=== PATIENT | female | born 1960 | race African-American/Black ===

== ENCOUNTER 2016-09-02 13:50 | Emergency (ER) | payer MEDICAID ==
[~2016-09-02] VITALS: Ht 172.7 cm; Wt 97.0 kg
[2016-09-02] MEDS ORDERED: DIPHENHYDRAMINE 25MG CAPSULE PO ONE (16:15)
[2016-09-02 16:37] LABS: BASOPHILS % 0.9 % (0.0-2.0); EOSINOPHILS % 1.6 % (0.0-5.0); HEMATOCRIT. 37.1 % (36.0-48.0); HEMOGLOBIN. 12.6 g/dL (12.0-16.0); MEAN CORPUSCULAR HEMOGLOBIN 30.9 pg (28.0-32.0); MEAN CORPUSCULAR VOLUME 91.1 fL (81.0-99.0); MONOCYTES % 10.5 % (2.0-8.0); PLATELET 235 x1000/uL (130-400); RED BLOOD CELL COUNT 4.07 mill/uL (4.2-5.4); RED CELL DISTRIBUTION WIDTH 14.1 % (11.6-14.6)
[2016-09-02 16:49] LABS: CARBON DIOXIDE 27 mEq/L (21-32); CHLORIDE 106 mEq/L (98-107)
[2016-09-02 17:59] VITALS: BP 198/113
== END 2016-09-02 18:36 | disposition home or self-care (01) ==
LOC: ER 16:24
DX: H10.022 Other mucopurulent conjunctivitis, left eye (principal); I10 Essential (primary) hypertension
CPT/HCPCS: 36415; 80053; 85025; 99284; J7030; Q0163

== ENCOUNTER 2017-06-12 11:50 | Emergency (ER) | payer MEDICAID ==
[~2017-06-12] VITALS: Ht 170.2 cm; Wt 109.0 kg
[2017-06-12] MEDS ORDERED: IBUPROFEN 600MG TABLET PO STA (13:05)
[2017-06-12] MEDS ORDERED: KETOROLAC 60MG/2ML VIAL IM STA (13:06)
[2017-06-12 13:17] VITALS: BP 162/93
== END 2017-06-12 13:40 | disposition home or self-care (01) ==
LOC: ER 11:50
DX: L03.211 Cellulitis of face (principal); K12.0 Recurrent oral aphthae; I10 Essential (primary) hypertension
CPT/HCPCS: 96372; 99283; J1885

== ENCOUNTER 2018-06-23 14:23 | Emergency (ER) | payer MEDICAID ==
[~2018-06-23] VITALS: Ht 172.7 cm; Wt 113.0 kg
[2018-06-23] MEDS ORDERED: IBUPROFEN 600MG TABLET PO STA (16:06)
[2018-06-23] MEDS ORDERED: KETOROLAC 30MG/ML VIAL IV STA (16:20)
[2018-06-23] MEDS ORDERED: SODIUM CHLORIDE 0.9% 1,000 ML IV ONE (16:20)
[2018-06-23 16:27] LABS: BASOPHILS % 0.6 % (0.0-2.0); EOSINOPHILS % 2.4 % (0.0-5.0); HEMOGLOBIN. 12.5 g/dL (12.0-16.0); LYMPHOCYTES % 48.2 % (20.0-50.0); MEAN CORPUSCULAR HEMOGLOBIN 30.2 pg (28.0-32.0); MEAN CORPUSCULAR VOLUME 91.6 fL (81.0-99.0); MEAN PLATELET VOLUME 8.6 fl (7.4-10.4); MONOCYTES % 10.4 % (2.0-8.0); NEUTROPHILS % 38.4 % (40.0-76.0); PLATELET 209 x1000/uL (130-400); RED BLOOD CELL COUNT 4.14 mill/uL (4.2-5.4); RED CELL DISTRIBUTION WIDTH 14.9 % (11.6-14.6)
[2018-06-23 16:32] LABS: CHLORIDE 106 mEq/L (98-107); PROTHROMBIN TIME 10.4 sec (9.6-11.0)
[2018-06-23 16:34] LABS: CLARITY URINE CLEAR (CLEAR); COLOR URINE YELLOW (YELLOW); KETONES URINE NEGATIVE (NEGATIVE); LEUKOCYTE ESTERASE URINE NEGATIVE (NEGATIVE); NITRITE URINE NEGATIVE (NEGATIVE); OCCULT BLOOD URINE 2+ (NEGATIVE); PH URINE 5.5 (4.5-8.0); PROTEIN URINE NEGATIVE (NEGATIVE); SPECIFIC GRAVITY URINE 1.019 (1.005-1.030); UROBILINOGEN URINE 0.2 E.U./dL (0.2-1.0)
[2018-06-23 18:00] VITALS: BP 139/99
== END 2018-06-23 19:44 | disposition home or self-care (01) ==
LOC: ER 14:23
DX: R10.32 Left lower quadrant pain (principal); K57.90 Diverticulosis of intestine, part unspecified, without perforation or abscess without bleeding; E78.00 Pure hypercholesterolemia, unspecified; I10 Essential (primary) hypertension; E11.9 Type 2 diabetes mellitus without complications; F17.210 Nicotine dependence, cigarettes, uncomplicated; Z71.6 Tobacco abuse counseling
CPT/HCPCS: 36415; 74176; 80053; 81003; 83690; 85025; 85610; 87086; 96374; 99284; 99406; J1885; J7030

== ENCOUNTER 2022-10-01 11:12 | Emergency (ER) | payer MEDICAID, OTHER ==
[~2022-10-01] VITALS: Ht 172.7 cm; Wt 122.0 kg
[2022-10-01 11:37] VITALS: TEMP 98.5; O2SAT 98
[2022-10-01 12:00] VITALS: BP 136/88; PULSE 88; RESP 16
[2022-10-01] MEDS ORDERED: KETOROLAC 60MG/2ML VIAL IM ONE (12:00)
[2022-10-01] MEDS ORDERED: IBUP-2030 MT (13:00)
== END 2022-10-01 13:15 | disposition home or self-care (01) ==
LOC: ER 11:12
DX: S63.501A Unspecified sprain of right wrist, initial encounter (principal); E11.9 Type 2 diabetes mellitus without complications; E78.00 Pure hypercholesterolemia, unspecified; I10 Essential (primary) hypertension; Z87.440 Personal history of urinary (tract) infections; X58.XXXA Exposure to other specified factors, initial encounter; Y93.89 Activity, other specified; Y92.89 Other specified places as the place of occurrence of the external cause; Y99.8 Other external cause status
CPT/HCPCS: 99284; 73110; 73130; 96372; J1885

== ENCOUNTER 2023-03-07 12:35 | Emergency (ER) | payer OTHER ==
[~2023-03-07] VITALS: Ht 167.6 cm; Wt 91.0 kg
[~2023-03-07 12:35] MED LIST: IBUP-2030 MT
[2023-03-07 12:44] VITALS: BP 131/85; PULSE 100; RESP 16; TEMP 98.4; O2SAT 98
== END 2023-03-07 18:42 | disposition left against medical advice (07) ==
LOC: ER 12:35
DX: M79.673 Pain in unspecified foot (principal); Z53.21 Procedure and treatment not carried out due to patient leaving prior to being seen by health care provider
CPT/HCPCS: 99281